=== PATIENT | female | born 1945 | race Hispanic/Latino ===

== ENCOUNTER 2017-08-25 06:18 | Day surgery (SDC) | payer MEDICARE, BC ==
[2017-08-23 10:47] VITALS: BMI 32.5
[2017-08-25] MEDS ORDERED: Lactated Ringer's 1,000 ML IV ONE (07:53)
[2017-08-25] MEDS ORDERED: Propofol 10 mg/ml Inj (20 ML) ONE (07:59)
[2017-08-25] MEDS ORDERED: Lidocaine Hydrochloride 5 ML INJ ONE (08:18)
[2017-08-25 08:58] VITALS: TEMP 97
[2017-08-25 09:49] VITALS: O2SAT 98
[2017-08-25 10:41] VITALS: BP 119/78; PULSE 72; RESP 18
== END 2017-08-25 10:05 | disposition home or self-care (01) ==
LOC: C.ENDO 06:18
PROVIDERS: ATTEND Internal Medicine Gastroenterology
DX: R10.13 Epigastric pain (principal); K25.7 Chronic gastric ulcer without hemorrhage or perforation; K44.9 Diaphragmatic hernia without obstruction or gangrene; R19.4 Change in bowel habit; K64.1 Second degree hemorrhoids; K63.5 Polyp of colon; K62.1 Rectal polyp; K57.30 Diverticulosis of large intestine without perforation or abscess without bleeding; E78.5 Hyperlipidemia, unspecified; Z79.899 Other long term (current) drug therapy; Z86.010 Personal history of colon polyps; F17.210 Nicotine dependence, cigarettes, uncomplicated
CPT/HCPCS: 43239; 45380; 45385; 88305; J2704; J7120